=== PATIENT | female | born 1960 | race Caucasian/White ===

== ENCOUNTER 2019-06-30 19:52 | Emergency (ER) | payer OTHER ==
[~2019-06-30] VITALS: Ht 162.6 cm; Wt 90.7 kg
[2019-06-30] MEDS ORDERED: FLAX SEED OIL1000 MG PO (20:06)
[2019-06-30] MEDS ORDERED: ALLEGRA ALLERG180 MG PO (20:06)
[2019-06-30] MEDS ORDERED: PREVACID30 MG PO (20:07)
[2019-06-30] MEDS ORDERED: LIPITOR 20 MG T20 M1 PO (20:07)
[2019-06-30] MEDS ORDERED: TYLENOL325 MG PO (20:07)
[2019-06-30] MEDS ORDERED: METFORMIN HCL500 MG PO (20:07)
[2019-06-30] MEDS ORDERED: EYE ITCH RELIEF5 ML OPHTHALMIC (20:08)
[2019-06-30] MEDS ORDERED: SYNTHROID112 MC1 PO (20:08)
[2019-06-30] MEDS ORDERED: NORVASC2.5 MG PO (20:09)
[2019-06-30] MEDS ORDERED: IRBESARTAN300 MG PO (20:09)
[2019-06-30] MEDS ORDERED: LIORESAL 10 MG10 MG PO (20:09)
[2019-06-30] MEDS ORDERED: JARDIANCE25 MG PO (20:10)
[2019-06-30] MEDS ORDERED: IMITREX100 MG PO (20:11)
[2019-06-30 20:23] LABS: ABSOLUTE EOSINOPHILS 0.1 thou/uL (0.0-0.7); ABSOLUTE MONOCYTES 1.1 thou/uL (0.0-1.2); ABSOLUTE NEUTROPHILS 11.4 thou/uL (1.6-8.1); BASOPHILS 0.2 %; EOSINOPHILS 0.4 %; HEMATOCRIT 48.2 % (37.0-47.0); HEMOGLOBIN 16.2 gm/dL (12.0-15.0); LYMPHOCYTES 13.8 %; MCH 32.8 pg (26.0-34.0); MCHC 33.5 g/dL (28.0-37.0); MCV 97.7 fL (80.0-100.0); MONOCYTES 7.8 %; MPV 10.6 fl. (7.2-11.1); NUCLEATED RBCS 0 /100WBC; PLATELET COUNT* 343 thou/uL (150-400); POLYS 77.8 %; RBC 4.94 mil/uL (4.20-5.00); WBC 14.7 thou/uL (4.0-11.0)
[2019-06-30 20:32] LABS: ANION GAP 15 mmol/L (7-16); BUN 15 mg/dL (7-18); CALCIUM 10.4 mg/dL (8.5-10.1); CHLORIDE 99 mmol/L (98-107); CO2 21 mmol/L (21-32); CREATININE 0.8 mg/dL (0.6-1.3); GLUCOSE 188 mg/dL (70-99); POTASSIUM 3.6 mmol/L (3.5-5.1); SODIUM 135 mmol/L (136-145)
[2019-06-30 20:41] LABS: ALBUMIN 4.3 g/dL (3.4-5.0); ALKALINE PHOSPHATASE 87 U/L (46-116); LIPASE 81 U/L (73-393); SGOT 10 U/L (15-37); SGPT 29 U/L (30-65); TOTAL BILIRUBIN 0.6 mg/dL (<0.1-1.0); TOTAL PROTEIN 8.6 g/dL (6.4-8.2); TROPONIN-I LEVEL <0.06 ng/mL (<0.06)
[2019-06-30 21:53] LABS: URINE BILIRUBIN NEGATIVE (Negative); URINE BLOOD TRACE (Negative); URINE CLARITY CLEAR; URINE COLOR YELLOW; URINE GLUCOSE-RANDOM 2+ (Negative); URINE KETONES 1+ (Negative); URINE LEUKOCYTES-REFLEX NEGATIVE (Negative); URINE NITRITE-REFLEX NEGATIVE (Negative); URINE PROTEIN NEGATIVE (Negative); URINE SPECIFIC GRAVITY <= 1.005 (1.005-1.030); URINE UROBILINOGEN 0.2 E.U./dl (0.2-1.0)
[2019-06-30] MEDS ORDERED: CIPRO500 MG PO (22:08)
[2019-06-30 23:00] VITALS: BP 149/77
--- NOTE | 2019-07-01 09:26 | EKG ---
[place] [address] ELECTROCARDIOGRAM REPORT Name: ROSSI PLATA Room: [facility]#: [id number] Admission: 06/30/19 Attend Phys: Discharge: 06/30/19 Date of : 64 Report #: [id number] THIS REPORT FOR: //name// [facility] ED Test Date: 2019-06-30 Test Time: 20:20:56 Pat Name: ROSSI PLATA Department: Room: Gender: F [employer]: [place] : 1960 Requested By: Jan Sidhu Order Number: [id number] MD: Murphy Ortega Measurements Intervals [place] Rate: 120 P: 26 MO: 163 QRS: -1 QRSD: 95 T: 207 QT: 322 QTc: 455 Interpretive Statements Sinus tachycardia LVH with secondary repolarization abnormality Inferior infarct, old No previous ECG available for comparison Electronically Signed On 07-01-2019 9:26:23 CDT by Murphy Ortega [email or web address] <ELECTRONICALLY SIGNED> By: Murphy Ortega MD, [facility] 07/01/19 0926 19 19 Murphy Ortega MD, FACC /EPI
== END 2019-06-30 23:00 | disposition home or self-care (01) ==
LOC: M.ERS 19:52
PROVIDERS: Family Medicine
DX: A09 Infectious gastroenteritis and colitis, unspecified (principal); R11.2 Nausea with vomiting, unspecified; G43.909 Migraine, unspecified, not intractable, without status migrainosus; K21.9 Gastro-esophageal reflux disease without esophagitis; E11.9 Type 2 diabetes mellitus without complications; Z85.828 Personal history of other malignant neoplasm of skin; Z90.710 Acquired absence of both cervix and uterus; Z98.890 Other specified postprocedural states; Z90.49 Acquired absence of other specified parts of digestive tract; Z88.8 Allergy status to other drugs, medicaments and biological substances; Z88.4 Allergy status to anesthetic agent; Z88.1 Allergy status to other antibiotic agents